=== PATIENT | female | born 1985 | race Caucasian/White ===

== ENCOUNTER 2020-10-28 13:07 | Emergency (ER) | payer OTHER, SELFPAY ==
--- NOTE | ~2020-10-28 | XR_ITS ---
EXAMINATION: XR KNEE, LEFT CLINICAL INFORMATION: Status post fall COMPARISON: None TECHNIQUE: Four views of the left knee. FINDINGS: Small knee effusion. No joint space narrowing. The alignment is normal. No fracture, dislocation or acute osseous abnormality is seen XR/XR knee LT 4V IMPRESSION: Small knee effusion. No acute osseous abnormality is demonstrated.
[2020-10-28 13:15] VITALS: BP 119/77; PULSE 75; RESP 16; TEMP 36.8; O2SAT 98; BMI 30.9
--- NOTE | 2020-10-28 14:48 | ED_ITS ---
HPI - Extremity Injury (Lower) General Chief Complaint: Extremity Injury, Lower Stated Complaint: L KNEE INJ AT HOME Time Seen by Provider: 10/28/20 13:28 Source: patient Mode of arrival: ambulatory Limitations: no limitations History of Present Illness HPI Narrative: Complaining of left knee pain status post fall at home 2 days ago. complaint: knee injury Onset (ago): day(s) Type of Injury: blunt Place: home Relieving factors: cold therapy and other (Knee brace) Exacerbating factors: weight bearing Context: fall Associated symptoms: able to partially bear weight Other symptoms: none Treatments prior to arrival: cold therapy Related Data Previous Rx's Medication Instructions Recorded ibuprofen 800 mg PO Q8H PRN #30 tab 10/28/20 Allergies Allergy/AdvReac Type Severity Reaction Status Date / Time No Known Allergies Allergy Unverified 05/25/20 15:35 Seasonale Allergy Unknown Uncoded 04/29/18 00:00 Review of Systems Review of Systems: Constitutional: No Weight loss, No Fever, No Chills, No Night Sweats, No Fatigue, No Malaise ENT/Mouth: Negative Eyes: Negative Cardiovascular: No Chest Pain, No SOB, No Dyspnea on Exertion, No Orthopnea, No Edema, No Palpitations Respiratory: Negative Gastrointestinal: Negative Genitourinary: Negative Musculoskeletal: Left knee pain as noted per HPI Skin: No Skin Lesions, No rash Neuro: Negative Psych: Negative Heme/Lymph: No Bruising, No Bleeding,No Lymphadenopathy Endocrine: Negative Yes all other systems are reviewed and are negative PMFSH Past Medical History Medical History (Updated 10/28/20 @ 15:01 by Xander Garcia NP) No known health problems Social History Social History Alcohol intake: never Smoking Status: Current some day smoker Use of substances other than those prescribed or required for medical reasons: No Advance Directives: No Advance Directives Information Provided: No Physical Exam Vital Signs: Vital Signs: Last Vital Signs Temp 98.3 F 10/28/20 13:15 Pulse 75 10/28/20 13:15 Resp 16 10/28/20 13:15 BP 119/77 10/28/20 13:15 Pulse Ox 98 10/28/20 13:15 Body Mass Index 30.9 Reviewed Const: General: cooperative and healthy appearing; No acute distress or intoxicated appearing Nutritional Appearance: average body habitus Orientation/consciousness: patient oriented x3 HENMT: Head: Yes normal to inspection Ears: hearing grossly normal bilaterally Chest: Chest palpation & inspection: normal inspection of the chest Resp: Effort & Inspection: normal respiratory effort Auscultation: clear to auscultation bilaterally Cardio: Rhythm: regular rhythm Heart sounds: S1 normal heart sound present and S2 normal heart sound present : General: Yes no CVA tenderness Back/Spine/Pelvis: Back: no CVA tenderness Skin: General skin exam: no rashes or lesions noted Neuro: General: patient oriented x3 Extrem: Other: Left knee with with full mobility. Lower extremity neurovascular intact no overt edema, ecchymosis. Neurovascularly intact. Slightly swollen consistent with small effusion. General: Yes normal to inspection MDM - Extremity Injury (Lower) MDM Narrative Medical decision making narrative: AP consistent with contusion/strain type injury. No evidence to suggest DVT or acute infectious pathology. Has a knee immobilizer will give her crutches and NSAIDs with outpatient follow-up. Differential Diagnosis Differential diagnosis: Likely acute internal derangement of knee (Strain, contusion, effusion ) Medical Records Attestation: I reviewed the patient's medical records. Lab Data Attestation: I reviewed the patient's lab results. Imaging Data Left knee x-ray: Radiologist's impression: [address] [id number] ReportSigned Patient: Trista Osorio DMR#: [id number]: [id number]:[id number]/Sex: 35 / FADM Date: 10/28/20Loc: HO.EDAttending Dr: Ordering Physician: Xander Garcia NP Date of Service: 10/28/20 Procedure(s): XR knee LT 4V Accession Number(s): [id number] cc: Xander Garcia NP~ EXAMINATION: XR KNEE, LEFT CLINICAL INFORMATION: Status post fall COMPARISON: None TECHNIQUE: Four views of the left knee. FINDINGS: Small knee effusion. No joint space narrowing. The alignment is normal. No fracture, dislocation or acute osseous abnormality is seen XR/XR knee LT 4V IMPRESSION: Small knee effusion. No acute osseous abnormality is demonstrated. Dictated By:ROSAURA SHER MDSigned By:<Electronically signed by ROSAURA SHER MD in OV>10/28/20 1351 DD/ 1328TD/TT: Maintenance And Engineering Manager: JAMES Discharge Plan Discharge Clinical Impression: Effusion of left knee Strain of left knee Qualifiers: Encounter type: initial encounter Qualified Code(s): S86.912A - Strain of unspecified muscle(s) and tendon(s) at lower leg level, left leg, initial encounter Patient Disposition: Home, Self-Care Instructions: Crutch Instructions (ED), Knee Pain (ED), Knee Immobilizer (ED) Additional Instructions: Rest, ice, elevate, compress Gentle range of motion Crutches next 3 days Partial weight-bearing as tolerated Return if any concerns or symptoms Follow-up instruction Thank you Prescriptions: New ibuprofen 800 mg tablet 800 mg PO Q8H PRN (Reason: pain) Qty: 30 RF: 0 Referrals: Jose Haq MD [Physician] - 2 weeks
[2020-10-28] MEDS: Ibuprofen 800 MG TABLET PO (14:55)
== END 2020-10-28 15:10 | disposition home or self-care (01) ==
PROVIDERS: Emergency Provider Emergency Medicine
DX: M25.462 Effusion, left knee (principal); S86.912A Strain of unspecified muscle(s) and tendon(s) at lower leg level, left leg, initial encounter; W01.0XXA Fall on same level from slipping, tripping and stumbling without subsequent striking against object, initial encounter; Y93.9 Activity, unspecified; Y92.019 Unspecified place in single-family (private) house as the place of occurrence of the external cause; Y99.9 Unspecified external cause status
CPT/HCPCS: 73564; 99283

== ENCOUNTER → 2020-11-08 13:55 | Outpatient (BNVA) | payer OTHER, SELFPAY | PROVIDERS: PCP Internal Medicine; Visit Provider Physician Assistant | DX: S80.02XA Contusion of left knee, initial encounter (principal) | CPT/HCPCS: 99202 ==

== ENCOUNTER 2021-04-19 16:52 | Outpatient (REF) | payer OTHER, SELFPAY | END 2021-04-19 16:53 | disposition home or self-care (01) | LOC: HO.LNP 16:52 | PROVIDERS: Visit Provider Hospitalist | DX: R30.0 Dysuria (principal) | CPT/HCPCS: 87086; 87088; 87186 ==

== ENCOUNTER 2021-09-21 07:32 | Outpatient (REF) | payer OTHER, SELFPAY | END 2021-09-21 07:33 | disposition home or self-care (01) | LOC: HO.HOSX 07:32 | PROVIDERS: Visit Provider Physician Assistant | DX: Z13.89 Encounter for screening for other disorder (principal) ==

== ENCOUNTER 2023-07-31 02:41 | Emergency (ER) | payer OTHER, SELFPAY ==
[2023-07-31 02:46] VITALS: BP 124/77; PULSE 90; RESP 14; TEMP 36.9; O2SAT 99; BMI 29.2
[2023-07-31 03:17] LABS: Appearance Urine Cloudy; Color Urine Orange; Glucose Urine UA Negative (Negative); Leukocyte Esterase Urine Large (3+) (Negative); Nitrite Urine Positive (Negative); PH 5.5 (5.0-9.0); UMIC TRIGGER UACC YES; Urine Blood Moderate (2+) (Negative); Urine Ketones Negative (Negative); Urine Protein 30 (1+) mg/dL (Neg-Trace)
[2023-07-31 03:21] LABS: Bacteria Urine Trace (None Seen); Hyaline Casts Urine 0-2 /LPF (0-2); Squamous Epithelial Cell Urine 0-2 /HPF (0-2); UACC Culture Trigger YES; WBC Urine >50 /HPF (0-5)
--- NOTE | 2023-07-31 03:22 | PC.NURSE ---
pt reports lower ABD pain, burning with urination and left sided flank pain x 1 week worsening tonight. Pt ambulated to BR with steady gait. Urine sample collected and sent to lab.
--- NOTE | 2023-07-31 04:01 | ED.FEMALEGU ---
HPI - Female Genitourinary General Chief complaint: Urogenital-Female Stated complaint: UTI? Lower back pain Time Seen by Provider: 07/31/23 03:59 Source: patient Mode of arrival: ambulatory Limitations: no limitations History of Present Illness HPI Narrative: Patient otherwise healthy complaining of frequency dysuria for last 1 week tried Pyridium without much relief no fever no chills has low back pain no history of pyelonephritis no history of kidney stone patient really get UTI Related Data Previous Rx's Medication Instructions Recorded ibuprofen 800 mg tablet 800 mg PO Q8H PRN pain #30 tabs 10/28/20 sulfamethoxazole 800 1 tab PO BID #14 tabs 04/19/21 mg-trimethoprim 160 mg tablet (Bactrim DS) cefuroxime axetil 250 mg tablet 250 mg PO BID 7 days #14 tabs 07/31/23 Allergies Allergy/AdvReac Type Severity Reaction Status Date / Time No Known Allergies Allergy Verified 07/31/23 03:33 Seasonale Allergy Unknown Unknown Uncoded 07/31/23 03:33 Review of Systems Review of Systems: Yes all other systems are reviewed and are negative PMFSH Past Medical History Medical History No known health problems Surgical History Previous section Social History Alcohol intake: current Alcohol intake frequency: holidays/special occasions only Smoked in Last 30 Days: Yes Use of substances other than those prescribed or required for medical reasons: Yes Substance Use Type: Marijuana Substance Use Frequency: Occasionally Advance Directives: No Advance Directives Information Provided: Yes Patient : No Current occupational status: employed 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 Oriented X3. No acute distress. ENT: Pharynx normal. Oral Mucosa moist Neck: Normal inspection. Neck supple. CVS: Normal heart rate and rhythm. Pulses normal. Respiratory: No respiratory distress. Equal air entry bilateral, Abdomen: Soft and nontender. Bowel sounds are present, no mass palpable, no CVA tenderness Skin: Skin warm and dry. Normal skin color. Normal skin turgor. Extremities: No lower extremity edema. No calf tenderness Neuro: Oriented X 3. Medications Administered Discontinued Medications Generic Name Dose Route Start Last Admin Trade Name Freq PRN Reason Stop Dose Admin Cefuroxime Axetil 250 mg 07/31/23 04:02 07/31/23 04:11 Cefuroxime Axetil 250 Mg Tablet PO 07/31/23 04:03 250 mg ONCE ONE Administration Medical Decision Making Medical Decision Making [facility] Narrative: Patient with uncomplicated UTI will discharge patient home on Ceftin Differential Diagnosis Differential Diagnoses: The differential diagnosis associated with the presentation includes UTI/cystitis/pyelonephritis/kidney stone Lab Data [facility] Lab Attestation statement: I reviewed the patient's lab results. Labs: Lab Results 07/31/23 Range/Units 03:07 Urine Color [place] A Urine Appearance Cloudy Urine pH 5.5 (5.0-9.0) Ur Specific [place] 1.010 (1.005-1.025) Urine Protein 30 (1+) H (Neg-Trace) mg/dL Urine Glucose (UA) Negative (Negative) mg/dL Urine Ketones Negative (Negative) mg/dL Urine Blood Moderate (2+) H (Negative) Urine Nitrite Positive H (Negative) Ur Leukocyte Esterase Large (3+) H (Negative) Urine RBC 11-20 H (0-2) /HPF Urine WBC >50 H (0-5) /HPF Ur Squamous Epith Cells 0-2 (0-2) /HPF Urine Bacteria Trace (None Seen) Hyaline Casts 0-2 (0-2) /LPF Discharge Plan Discharge Clinical Impression: UTI (urinary tract infection) Patient Disposition: Home, Self-Care Instructions: Urinary Tract Infection in Women (ED) Additional Instructions: Drink plenty of fluids Take antibiotic as prescribed Follow with PCP if not better Prescriptions: New cefuroxime axetil 250 mg tablet 250 mg PO BID 7 Days Qty: 14 0RF No Action ibuprofen 800 mg tablet 800 mg PO Q8H PRN (Reason: pain) Qty: 30 0RF sulfamethoxazole-trimethoprim [Bactrim DS] 800-160 mg tablet 1 tab PO BID Qty: 14 0RF Interventions: ED Discharge Assessment Last Done: 07/31/23 04:21 Discharge Date/Time: 07/31/23 04:23
[2023-07-31] MEDS: cefuroxime axetiL 250 MG TABLET PO (04:11)
== END 2023-07-31 04:23 | disposition home or self-care (01) ==
PROVIDERS: Emergency Provider Internal Medicine; PCP Internal Medicine
DX: N39.0 Urinary tract infection, site not specified (principal); B96.20 Unspecified Escherichia coli [E. coli] as the cause of diseases classified elsewhere; M54.50 Low back pain, unspecified; F12.90 Cannabis use, unspecified, uncomplicated
CPT/HCPCS: 81001; 87086; 87088; 87186; 99283; 99284

== ENCOUNTER 2023-11-20 12:19 | Outpatient (AMB) | payer OTHER, SELFPAY ==
[2023-11-20 12:21] VITALS: BP 110/66; PULSE 91; O2SAT 99; BMI 35.5
--- NOTE | 2023-11-20 12:21 | MHC.PC.OV ---
Vital Signs 11/20/23 12:21 Height 5 ft 3 in Weight 200 lb 8 oz BMI 35.5 BP 110/66 Blood Pressure Location Rt brachial Position Sitting Pulse 91 Pulse Source Pulse Oximeter Pulse Oximetry (%) 99 Oxygen Delivery Method Room Air Intake Visit Reasons: Re-establish Care () Patient : Yes Allergies No Known Allergies Allergy (Verified 11/20/23 12:21) Seasonale Allergy (Unknown, Uncoded 07/31/23 03:33) Unknown Tobacco use date assessed: 11/20/23 Dental Screening Dental Screen Date: 11/20/23 Did you have a dental visit in the last 12 months?: No Did you have a dental problem in the last 6 months where you did not have access to dental care?: No Was dental information given to patient?: Patient has dentist HPI Re-establish Care () HPI Details Patient presents for physical. She is 4 months and established with OBGYN. 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 1. Little interest or pleasure in doing things: not at all 2. Feeling down, depressed, or hopeless: not at all 3. Trouble falling or staying asleep, or sleeping too much: not at all 4. Feeling tired or having little energy: not at all 5. Poor appetite or overeating: not at all 6. Feeling bad about yourself - or that you are a failure or have let yourself or your family down: not at all 7. Trouble concentrating on things, such as reading the newspaper or watching television: not at all 8. Moving or speaking so slowly that other people could have noticed. Or the opposite - being so fidgety or restless that you have been moving around a lot more than usual: not at all 9. Thoughts that you would be better off or of hurting yourself in some way: not at all Total score: 0 Depression Screening Interpretation: Negative Depression Screening Done: Yes Source: Developed by Drs. Waqas Michael, Demetrice Hill, Mahad Escoto and colleagues, with an educational constantin from [facility]. Thrive Questionnaire Date Thrive assessed: 11/20/23 I am a: Patient What is your living situation today?: I have a steady place to live Within the past 12 months, did the food you bought not last and you didn't have the money to get more?: Never true Within the past 12 months, did you worry whether your food would run out before you got money to buy more?: Never true Do you have trouble paying for medicines?: No Do you have trouble getting transportation to medical appointments?: No Do you have trouble paying your heating and electricity bill?: No Do you have trouble taking care of your child, family member or friend?: No Do you have trouble with day-to-day activities such as bathing, preparing meals, shopping, managing finances, etc.?: No Are you currently unemployed and looking for a job?: No Please select the resources that you would like help with: None THRIVE Score: 0 AUDIT C Alcohol Use Questionnaire (AUDIT-C) 1. How often do you have a drink containing alcohol?: Never 3. How often do you have six or more drinks on one occasion?: Never Total Score: 0 Score Reviewed/Action Taken: Yes CHELI-7 AMB Questionnaire CHELI-7 Date CHELI - 7 assessed: 11/20/23 Feeling nervous, anxious, or on edge: 0 = Not at all Not being able to stop or control worryin = Not at all Worrying too much about different things: 0 = Not at all Trouble relaxin = Not at all Being so restless that it is hard to sit still: 0 = Not at all Becoming easily annoyed or irritable: 0 = Not at all Feeling afraid as if something awful might happen: 0 = Not at all Total CHELI-7 score (0-4 normal; 5-9 mild; 10-14 moderate; 15-21 severe): 0 Source: Developed by Drs. Waqas Michael, Demetrice Hill, Mahad Escoto and colleagues, with an educational constantin from [facility]. Review of Systems Const All systems reviewed & are unremarkable except as noted in HPI and below Reports no additional complaints Eyes Reports no additional complaints ENT Reports no additional complaints Card Reports no additional complaints Resp Reports no additional complaints GI Reports no additional complaints Reports no additional complaints Physical exam (Primary Care) Vital Signs: Last Vital Signs Pulse 91 11/20/23 12:21 BP 110/66 11/20/23 12:21 Pulse Ox 99 11/20/23 12:21 Oxygen Delivery Method Room Air 11/20/23 12:21 BMI result Body Mass Index 35.5 Tobacco/Smoking Status: Tobacco use Status Tobacco use date assessed 11/20/23 11/20/23 12:26 e-Cigarette/Vaping Use Never Used 11/20/23 12:26 Depression Screening Interpretation: Negative Const General: no acute distress HENMT Head: Yes normal to inspection Ears: hearing grossly normal bilaterally General nose exam: Normal external nose present Face and sinus: Yes normal facial exam Eyes General: appearance normal, both eyes and all related structures Neck Neck: Yes no lymphadenopathy and Yes supple Resp Effort & Inspection: normal respiratory effort Auscultation: clear to auscultation bilaterally Cardio Rhythm: regular rhythm Heart sounds: S1 normal heart sound present and S2 normal heart sound present GI Inspection: Yes normal to inspection Palpation (GI): Soft to palpation Percussion: Yes normal to percussion Auscultation: normal bowel sounds Assessment and Plan Assessment & Plan (1) Annual physical exam: Code(s): Z00.00 - Encounter for general adult medical examination without abnormal findings Plan: Well-balanced diet regular physical activity discussed with the patient she will follow-up with OBGYN for care Coding Level of Care Code Est Pt Prev Care 18-39y(10445) Diagnoses Annual physical exam Z00.00
== END 2023-11-20 12:55 | disposition home or self-care (01) ==
PROVIDERS: PCP Internal Medicine; Visit Provider Internal Medicine
DX: Z00.00 Encounter for general adult medical examination without abnormal findings (principal)
CPT/HCPCS: 99395